=== PATIENT | male | born 1965 | race Caucasian/White ===

== ENCOUNTER 2018-09-22 07:40 | Emergency (ER) | payer OTHER ==
--- NOTE | 2018-09-22 08:29 | EDPHY ---
H & P Stated Complaint: abd pain x 1.5 wks after intercourse . now diarrhea /bloating Time Seen by Provider: 09/22/18 08:00 HPI/ROS: CHIEF COMPLAINT: Abdominal pain HISTORY OF PRESENT ILLNESS: This is a 53-year-old male who presents with 1-1/2 weeks of lower abdominal pain that began during moderate exertion. He also describes generalized abdominal pain along with the lower abdominal pain. He states that his pain is a cramping sensation with associated intermittent bloating. His last normal bowel movement was about 2 weeks ago. He has been having thin and small bowel movements, occasionally blood streaked. His stools are softer than usual, but not liquid. He has had increased flatus and tried an over the counter gas medication. He is not aware of having hemorrhoids. He has not had vomiting or fever. His only abdominal surgery is an inguinal hernia repair as a teen. He had a "stomach bug" a month ago and vomited twice with this illness, but recovered completely. He has had a reportedly normal endoscopy/colonoscopy within the year. REVIEW OF SYSTEMS: A ten system review of systems was performed and is negative with the exception of the items mentioned in the HPI. He also mentions low back pain that he has had for a few months and relates to a fall. He has taken ibuprofen for this pain. Past medical history/past surgical history: 1. Inguinal hernia repair as a child 2. Ligamentous repair in left knee 3. Right knee arthroscopy with meniscal repair 4. Skin graft left foot following traumatic injury 5. 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 Remote history of PUD Family history: No significant family history. No diabetes, hypertension, cardiac disease, cancer. Social history: He recently moved to [facility]. He is a commercial loan underwriter, employed by [employer]. He does not use tobacco products. No use of illicit drugs. He rarely drinks alcohol. General Appearance: Alert. Vital signs reviewed. Blood pressure 142/101 at triage. Eyes: Pupils equal and round, no conjunctival injection, no discharge. Anicteric. ENT, Mouth: Mucous membranes are moist, no oropharyngeal erythema or edema. Neck: No lymphadenopathy, supple. Respiratory: Lungs are clear to auscultation; no wheezes, rales, or rhonchi. Cardiovascular: Regular rate and rhythm; no murmur, rub, or gallop. Gastrointestinal: Abdomen is soft with mild tenderness in the midepigastrium and right upper quadrant and also in both lower quadrants, no guarding or rebound, no masses or organomegaly, bowel sounds normal. Rectal: No external hemorrhoids. Small amount brown stool on the examining gloved finger. Nontender. Skin: Warm and dry, no rashes on exposed skin, normal color. Back: Nontender to palpation over the thoracolumbar spine. No CVAT. Extremities: No lower extremity edema, no calf tenderness or swelling. Neurological: Alert and oriented. Moving all four extremities easily and equally. Psychiatric: Flat and somewhat worried affect. - Personal History Current Tetanus/Diphtheria Vaccine: Unsure Current Tetanus Diphtheria and Acellular Pertussis (TDAP): Unsure - Medical/Surgical History Hx Asthma: No Hx Chronic Respiratory Disease: No Hx Diabetes: No Hx Cardiac Disease: No Hx Renal Disease: No Hx Cirrhosis: No Hx Alcoholism: No Hx HIV/AIDS: No Hx Splenectomy or Spleen Trauma: No Other PMH: inguinal hernia repaired. left knee foot surgery. Right knee - Social History Smoking Status: Never smoked Constitutional: Initial Vital Signs Temperature (C) 36.6 C 09/22/18 07:47 Heart Rate 93 09/22/18 07:47 Respiratory Rate 16 09/22/18 07:47 Blood Pressure 142/101 H 09/22/18 07:47 O2 Sat (%) 96 09/22/18 07:47 O2 Delivery Mode Room Air Allergies/Adverse Reactions: codeine Allergy (Verified 09/22/18 07:52) Penicillins Allergy (Verified 09/22/18 07:52) Home Medications: Medication Instructions Recorded NK [No Known Home Meds] 09/22/18 Medical Decision Making - Diagnostics Imaging Results: Imaging Impressions Abdomen CT 09/22/18 09:59 Impression: 1. No acute abdominopelvic process. 2. Small hiatal hernia. 3. Granulomatous disease. Findings and recommendations discussed with RODRICK LESTER at 1052 hour, 2017. ED Course/Re-evaluation: 53-year-old male with 1-1/2 weeks of lower abdominal pain that he also describes as generalized pain. On exam is lower abdominal tenderness, no guarding. There has been a change in the pattern of his bowel movements. He is having small an infrequent bowel movements, occasionally soft. He has been straining at stool. He has noticed some blood streaking with an occasional bowel movement. No external hemorrhoids on exam. Stool Hemoccult is positive. Blood work including CBC, basic metabolic panel, liver functions, and lipase are all within normal limits with the exception of a slight elevation in blood glucose. He is not febrile. He has refused pain medication in the emergency department. He was re-examined at 10:00 a.m.. His abdominal exam remains unchanged. Patient has repeat been re-evaluated 2 more times. His exam remains unchanged with mild lower abdominal pain and some mild midepigastric pain. I had a lengthy discussion with the patient about the best way to proceed. My initial impression was that he might be constipated. I am also concerned about the possibility of diverticulitis with lower abdominal pain and bloody stools. He has agreed undergo CT scanning. CT scan reported to me. There is diverticulosis but no diverticulitis. No acute abdominopelvic process. I relayed these findings to the patient. I do not recommend further ED evaluation at this time. His abdominal exam reveals mild lower abdominal tenderness without peritoneal signs. He understands that the diagnosis remains unclear and that he might require further evaluation. We reviewed the danger signs that should prompt him to be re-evaluated immediately. I am referring him to a primary care physician and to a water pump installer. I am recommending [id number] pain medications. He is aware that he was hypertensive in the ED. He has no history of hypertension and will have his blood pressure rechecked. Differential Diagnosis: Abdominal pain including but not limited to muscle strain, constipation, appendicitis, cholecystitis, pancreatitis, gastritis, ureterolithiasis, and urinary tract infection. - Data Points Laboratory Results: 09/22/18 09/22/18 09/22/18 09:01 08:46 06:42 POC Sodium 140 mEq/L mEq/L (135-145) POC Potassium 3.6 mEq/L mEq/L (3.3-5.0) POC Chloride 103.0 mEq/L mEq/L (97-110) POC Total CO2 26 mEq/L mEq/L (22-31) POC BUN 12 mg/dL mg/dL (7-23) POC Creatinine 0.7 mg/dL mg/dL (0.7-1.3) POC Glucose 110 mg/dL H mg/dL (70-100) POC Calcium 9.2 mg/dL mg/dL (8.5-10.4) POC Total Bilirubin 0.7 mg/dL mg/dL (0.1-1.4) POC GGT 21 IU/L IU/L (5-65) POC AST 32 IU/L IU/L (17-59) POC ALT 28 IU/L IU/L (21-72) POC Alk Phosphatase 66 IU/L IU/L (38-126) POC Total Protein 6.8 g/dL g/dL (6.3-8.2) POC Albumin 3.8 g/dL g/dL (3.5-5.0) POC Amylase 48 IU/L IU/L (30-110) Lipase 55 IU/L IU/L (23-300) Point of Care Test Results: CBC CBC Collection Date 09/22/18 CBC Collection Time 08:42 WBC 4.6 RBC 4.67 HGB 14.5 HCT 42.0 PLT 271 Neut # 2.5 Neut 55.7 LYMPH # 1.7 LYMPH 36.3 Other WBC # 0.4 Other WBC 8.0 MCV 89.9 Chemistry 09/22/18 09/22/18 09:01 08:46 POC Sodium 140 mEq/L mEq/L (135-145) POC Potassium 3.6 mEq/L mEq/L (3.3-5.0) POC Chloride 103.0 mEq/L mEq/L (97-110) POC Total CO2 26 mEq/L mEq/L (22-31) POC BUN 12 mg/dL mg/dL (7-23) POC Creatinine 0.7 mg/dL mg/dL (0.7-1.3) POC Glucose 110 mg/dL H mg/dL (70-100) POC Calcium 9.2 mg/dL mg/dL (8.5-10.4) POC Total Bilirubin 0.7 mg/dL mg/dL (0.1-1.4) POC GGT 21 IU/L IU/L (5-65) POC AST 32 IU/L IU/L (17-59) POC ALT 28 IU/L IU/L (21-72) POC Alk Phosphatase 66 IU/L IU/L (38-126) POC Total Protein 6.8 g/dL g/dL (6.3-8.2) POC Albumin 3.8 g/dL g/dL (3.5-5.0) POC Amylase 48 IU/L IU/L (30-110) Liver Function Tests LFT Collection Date 09/22/18 LFT Collection Time 08:42 Occult Blood Occult Blood Collection Date 09/22/18 Occult Blood Collection Time 08:50 Occult Blood Result Positive/Positive Urine Dip Collection Date 09/22/18 Collection Time 10:30 Specific [place] (1.002-1.030) 1.015 PH (5.0-7.5) 8.5 Leukocytes (Negative) Negative Nitrites (Negative) Negative Protein (Negative) Negative Glucose (Negative) Negative Ketones (Negative) Negative Urobilnogen (0.2-1.0 EU) 0.2 Bilirubin (Negative) Negative Blood (Negative) Negative Departure - Departure Disposition: Home, Routine, Self-Care Clinical Impression: Abdominal pain Qualifiers: Abdominal location: lower abdomen, unspecified Qualified Code(s): R10.30 - Lower abdominal pain, unspecified Condition: Good Instructions: Abdominal Pain (ED) Additional Instructions: Adult Pain & Fever Control: We recommend Acetaminophen (Tylenol) and Ibuprofen (Motrin,Advil) for pain and fever control. When fever is high or pain severe, both drugs can be used at the same time, but at different intervals. Please note the time differences. Your dose is: Acetaminophen 650mg every 4 to 6 hours Ibuprofen 400mg every 8 hours with food OR Note: do not take Acetaminophen with Hydrocodone (Vicodin, Lortab) or Oycodone (Percocet). These medications also contain Acetaminophen. No more than 3000mg of Acetaminophen should be taken in 24 hours (for an adult). If you are worse in any way or if you develop new and concerning symptoms--fever , severe persistent pain, diarrhea, vomiting--you should be re-evaluated immediately. I am recommending regular doses of acetaminophen for your pain interspersed with an occasional dose of ibuprofen (be careful with this medication, as you have a history of ulcer disease in the past). Dosing guidelines are as above. I am referring you to a primary care physician, Dr. Bal, and also to a water pump installer, Dr. Tamez. If you are not getting better you might need to see a water pump installer. Referrals: Ozzy Bal MD [Medical Doctor] - As per Instructions Maurilio Tamez MD [Medical Doctor] - As per Instructions Stand Alone Forms: Work Excuse
[2018-09-22] MEDS ORDERED: IOPAMIDOL (ISOVUE-300) 100 ML BTL ONE (10:06)
[2018-09-22 11:58] VITALS: BP 140/94
== END 2018-09-22 12:06 | disposition home or self-care (01) ==
LOC: CED 07:40
DX: R10.30 Lower abdominal pain, unspecified (principal); R73.9 Hyperglycemia, unspecified; K44.9 Diaphragmatic hernia without obstruction or gangrene; Z88.0 Allergy status to penicillin
CPT/HCPCS: 74177-PO; 80048-PO; 80076-PO; 82150-PO; Q9967